=== PATIENT | male | born 1970 | race Caucasian/White ===

== ENCOUNTER 2020-07-18 14:01 | Inpatient (IN) ==
--- OUTSIDE RECORDS SUMMARY | 2020-07-18 14:03 | External Medical Summary | Continuity of Care Document ---
:1970 Author Name Jus Mary Address Unavailable Unavailable , Care Team Providers Name Role Phone Unavailable Unavailable Unavailable PCP, NO Unavailable Unavailable Problems Abnormal findings on screening (796.5) (O28.9) Allergies and Adverse Reactions Allergy history not documented Medications Medications not documented Procedures Procedures not documented Immunizations Immunizations not documented Plan of Treatment Planned Observations Planned Goals not documented Results No Known Results Results not documented
--- NOTE | 2020-07-18 15:33 | XRay Report ---
XR tibia fibula RT 2V CLINICAL HISTORY: R leg/calf pain TRAUMA COMPARISON: None. DISCUSSION: No fractures are visualized. There is a suprapatellar joint effusion. Mild fragmentation of the anterior tibial tuberosity is likely chronic. IMPRESSION: 1. No acute fractures 2. Suprapatellar joint effusion ACT 112: Negative or not required by law. Electronically signed by: Chaz Layton M.D. 07/18/2020 3:32 PM
[2020-07-18] MEDS ORDERED: ACETAMINOPHEN 1000 MG/100 ML IV IV ONE (15:34)
--- NOTE | 2020-07-18 15:38 | Emergency Department Note ---
History of Present Illness General Chief complaint: Leg Injury/Pain Stated complaint: PULLED MUSCLE IN RIGHT LEG Time Seen by Provider: 07/18/20 14:27 History of Present Illness Maximum Pain Intensity: 9 50-year-old male who presents to the emergency department with complaint of the patient does spend a lot of time on his feet as an employee at [employer]. The patient currently is not on any blood thinners. He denies any prior history of right calf injuries. He does report mild discomfort radiating into the ankle and knee region. The patient reports that the calf is starting to get very hard, and rates his discomfort a 9 out of 10 with weightbearing. Home Medications Medication Instructions Recorded Confirmed Type [id number] C-herb no.124 1 tab PO DAILY 07/18/20 07/18/20 History [Airborne (ascorbic acid)] Allergies Allergy/AdvReac Type Severity Reaction Status Date / Time No Known Allergies Allergy Unverified 07/18/20 17:39 Past Med/Surg History Medical History No significant past medical history Surgical History No significant past surgical history Family History Father Hypertension Diabetes Atrial fibrillation Grandfather (Maternal) Lung cancer Grandmother (Maternal) Cancer Grandfather (Paternal) , from [place] in age ~ 60s Myocardial infarction Social History Smoking Status: Unknown if ever smoked Tobacco Type: Cigars Hx Alcohol Use: No Hx Substance Use: No Preferred Language: Turkmen Communication Ability: Effective marital status: Single Current Living Situation: Spouse Current Living Situation Comment: With current occupational status: employed Other Information That Helps Us Care for You: No Feels Safe at Home: Yes Assistive Devices: Cane and Walker Review of Systems 10 system review was performed and was negative except for pertinent positives and negatives as indicated in history of present illness Physical Exam Vital Signs Vital Signs - 24 hr 07/18/20 14:03 07/18/20 16:00 07/18/20 18:25 Temperature 36.4 C L Temperature Source Temporal Artery Scan Pulse Rate 74 Pulse Rate [Finger] 77 68 Respiratory Rate 16 16 16 Respiratory Effort / Characteristics Spontaneous Non-Labored Spontaneous Respiratory Depth Normal Normal Respiratory Pattern Regular Blood Pressure 167/101 H Blood Pressure [Right Arm] 180/97 H 175/125 H Blood Pressure Mean 123 Blood Pressure Mean [Right Arm] 124 141 Blood Pressure Position Sitting Pulse Oximetry 99 98 98 Oxygen Delivery Method Room Air Room Air Sepsis Recent Fever Within 48 Hours No Sepsis New/Unexplained Change in Mental Status No Sepsis Action Taken by Nursing No Action Required CONSTITUTIONAL: Healthy and well nourished. Patient does not appear in any acute distress. HEENT: Normocephalic, atraumatic. No scleral icterus or conjunctival injection/pallor. NECK: Full active range of motion without discomfort. RESPIRATORY: Clear to auscultation bilaterally with no wheezing, crackles, rhonchi or stridor. CARDIOVASCULAR: Regular rate and rhythm with no murmurs, rubs or gallops. GASTROINTESTINAL: Bowel sounds present in all quadrants. MUSCULOSKELETAL: Examination of the right craft shows notable hardness when compared to the contralateral calf. There is no overriding erythema, ecchymosis or warmth to palpation. Patient has significant discomfort with passive forced dorsiflexion of the great toe and ankle. He also has mild tenderness through the popliteal space without any obvious popliteal masses. Pedal pulses are intact. INTEGUMENTARY: No rash or other significant dermatologic conditions noted. HEMATOLOGIC: No ecchymosis or petechiae. PSYCHIATRIC: Positive affect. NEUROLOGIC: No focal neurologic deficits noted. Course Course Patient history and physical exam were performed. Nurses notes were reviewed. Vital signs were reviewed, showing an elevated blood pressure of 167/101. The patient is in moderate discomfort, but initially refused any analgesics. IV access was established, and labs were drawn. While awaiting work-up to be completed, I did contact Elijah Diamond PA-C with [facility]. He reports that he is currently not in-house. He was able to determine that Dr. Martin, orthopedic surgeon process control operator, is in their [place] office. He also agrees of concern with possible compartment syndrome with the patient having pain with dorsiflexion of the great toe and ankle. While awaiting labs to be completed, an x-ray of the right leg did not show any acute findings. After x- rays were completed, the patient did agree to Tylenol. He was administered IV Tylenol because of the severity of his pain. Review of labs shows a moderate leukocytosis with a white count of 14.48, left shift and no bandemia. Sed rate and CRP are elevated. CMP shows normal LFTs with elevated alkaline phosphatase. Lyme screen was negative. Prior to going to ultrasound, the patient did request something stronger for pain, and was administered IV morphine and Zofran. Venous ultrasound of the right lower extremity was negative for DVT. Nonvascular ultrasound of the calf shows a fluid collection extending from the popliteal fossa, and measures 20 x 5 x 2 cm. X-ray of the right tib-fib was also normal. The case was initially discussed with the patient, as well as Dr. Casiano, ED attending physician, who recommended orthopedic consultation. The case was further discussed with Dr. Martin, [facility], who indicated that ultrasound findings were probably more consistent with a ruptured Webster's cyst, however could not rule out the possibility of hematoma, although the patient denies any recent trauma. Dr. Martin recommended hospitalist consultation for observation overnight, and repeat ultrasound in the morning to assess for stability. The case was then further discussed with Dr. Nova, [facility] spitalist. Please see the hospitalist service dictations for further treatment and final disposition. Prior to transfer of care, the patient did report adequate pain relief with IV medications that were provided. It is noted that after transfer of care to the hospitalist service, they did do a noncontrast CT of the leg which was concerning for hematoma. It is noted that coagulation studies are normal. He is also noted that the patient did have a positive COVID-19 test. Administered Medications Ascorbic Acid (Ascorbic Acid 500 Mg Tab) 500 mg PO DAILY MIGUEL Stop: 08/18/20 08:59 Last Admin: 07/19/20 09:06 Dose: 500 mg Documented by: [id number] Discontinued Medications Acetaminophen (Acetaminophen 1000 Mg/100 Ml Iv) 1,000 mg IV ONE ONE Stop: 07/18/20 15:35 Last Admin: 07/18/20 15:57 Dose: 1,000 mg Documented by: [id number] Ketorolac Tromethamine (Ketorolac 30 Mg/Ml Vial) 30 mg IV NOW ONE Stop: 07/18/20 19:13 Last Admin: 07/18/20 19:29 Dose: 30 mg Documented by: [id number] Medical Decision Making Medical Records Attestation: I reviewed the patient's medical records. Home Medications Current Medication List: was personally reviewed by me Laboratory Data Attestation: I reviewed the patient's lab results. Result diagrams: 07/19/20 06:33 07/18/20 17:12 Lab Results 07/18/20 07/18/20 07/18/20 Range/Units 15:45 15:45 15:45 WBC 14.48 H (4.8-10.8) K/uL RBC 5.15 (4.7-6.1) M/uL Hgb 16.3 (14.0-18.0) g/dL Hct 47.2 (42-52) % MCV 91.7 (80-100) fL MCH 31.7 (25-34) pg MCHC 34.5 (32-36) g/dL RDW Std Deviation 42.4 (36.4-46.3) fL RDW Coeff of Arlin 12.7 (11.5-14.5) % Plt Count 329 (130-400) K/uL MPV 11.2 H (7.4-10.4) fL Immature Gran % (Auto) 0.1 % Neut % (Auto) 80.1 % Lymph % (Auto) 11.9 % [place] % (Auto) 6.5 % Eos % (Auto) 1.1 % Baso % (Auto) 0.3 % Neut # (Auto) 11.60 H (1.4-6.5) K/uL Lymph # (Auto) 1.72 (1.2-3.4) K/uL [place] # (Auto) 0.94 H (0.11-0.59) K/uL Eos # (Auto) 0.16 (0-0.5) K/uL Baso # (Auto) 0.04 (0-0.2) K/uL Immature Gran # (Auto) 0.02 (0.00-0.02) K/uL ESR 15 H (0-14) mm/hr PT 10.8 (9.0-12.0) Seconds INR 1.0 (0.9-1.1) APTT 29.1 (21.0-31.0) Seconds PTT Ratio 1.0 Sodium (136-145) mmol/L Potassium (3.5-5.1) mmol/L Chloride (98-107) mmol/L Carbon Dioxide (21-32) mmol/L Anion Gap (3-11) BUN (7-18) mg/dl Creatinine (0.6-1.4) mg/dl Est Cr Clr Drug Dosing ml/min Est GFR ( Amer) Est GFR (Non-Af Amer) BUN/Creatinine Ratio (10-20) Glucose (70-99) mg/dl Calcium (8.5-10.1) mg/dl Total Bilirubin (0.2-1) mg/dl AST (15-37) U/L ALT (12-78) U/L Alkaline Phosphatase (45-117) U/L Total Creatine Kinase (39-308) U/L C-Reactive Protein (0-0.29) mg/dl Total Protein (6.4-8.2) gm/dl Albumin (3.4-5.0) gm/dl Globulin (2.5-4.0) gm/dl Albumin/Globulin Ratio (0.9-2) Lyme Disease IgG Ab Lyme Disease IgM Ab 07/18/20 07/18/20 07/18/20 Range/Units 15:45 15:45 17:12 WBC (4.8-10.8) K/uL RBC (4.7-6.1) M/uL Hgb (14.0-18.0) g/dL Hct (42-52) % MCV (80-100) fL MCH (25-34) pg MCHC (32-36) g/dL RDW Std Deviation (36.4-46.3) fL RDW Coeff of Arlin (11.5-14.5) % Plt Count (130-400) K/uL MPV (7.4-10.4) fL Immature Gran % (Auto) % Neut % (Auto) % Lymph % (Auto) % [place] % (Auto) % Eos % (Auto) % Baso % (Auto) % Neut # (Auto) (1.4-6.5) K/uL Lymph # (Auto) (1.2-3.4) K/uL [place] # (Auto) (0.11-0.59) K/uL Eos # (Auto) (0-0.5) K/uL Baso # (Auto) (0-0.2) K/uL Immature Gran # (Auto) (0.00-0.02) K/uL ESR (0-14) mm/hr PT (9.0-12.0) Seconds INR (0.9-1.1) APTT (21.0-31.0) Seconds PTT Ratio Sodium 136 (136-145) mmol/L Potassium 4.3 (3.5-5.1) mmol/L Chloride 106 (98-107) mmol/L Carbon Dioxide 29 (21-32) mmol/L Anion Gap 1.0 L (3-11) BUN 13 (7-18) mg/dl Creatinine 1.11 (0.6-1.4) mg/dl Est Cr Clr Drug Dosing 98.4 ml/min Est GFR ( Amer) 89.9 Est GFR (Non-Af Amer) 77.6 BUN/Creatinine Ratio 12.0 (10-20) Glucose 88 (70-99) mg/dl Calcium 9.0 (8.5-10.1) mg/dl Total Bilirubin 0.5 (0.2-1) mg/dl AST 11 L (15-37) U/L ALT 26 (12-78) U/L Alkaline Phosphatase 121 H (45-117) U/L Total Creatine Kinase (39-308) U/L C-Reactive Protein 1.21 H (0-0.29) mg/dl Total Protein 9.5 H (6.4-8.2) gm/dl Albumin 4.4 (3.4-5.0) gm/dl Globulin 5.1 H (2.5-4.0) gm/dl Albumin/Globulin Ratio 0.9 (0.9-2) Lyme Disease IgG Ab Cancelled Lyme Disease IgM Ab Cancelled 07/18/20 07/18/20 Range/Units 17:12 17:12 WBC (4.8-10.8) K/uL RBC (4.7-6.1) M/uL Hgb (14.0-18.0) g/dL Hct (42-52) % MCV (80-100) fL MCH (25-34) pg MCHC (32-36) g/dL RDW Std Deviation (36.4-46.3) fL RDW Coeff of Arlin (11.5-14.5) % Plt Count (130-400) K/uL MPV (7.4-10.4) fL Immature Gran % (Auto) % Neut % (Auto) % Lymph % (Auto) % [place] % (Auto) % Eos % (Auto) % Baso % (Auto) % Neut # (Auto) (1.4-6.5) K/uL Lymph # (Auto) (1.2-3.4) K/uL [place] # (Auto) (0.11-0.59) K/uL Eos # (Auto) (0-0.5) K/uL Baso # (Auto) (0-0.2) K/uL Immature Gran # (Auto) (0.00-0.02) K/uL ESR (0-14) mm/hr PT (9.0-12.0) Seconds INR (0.9-1.1) APTT (21.0-31.0) Seconds PTT Ratio Sodium (136-145) mmol/L Potassium (3.5-5.1) mmol/L Chloride (98-107) mmol/L Carbon Dioxide (21-32) mmol/L Anion Gap (3-11) BUN (7-18) mg/dl Creatinine (0.6-1.4) mg/dl Est Cr Clr Drug Dosing ml/min Est GFR ( Amer) Est GFR (Non-Af Amer) BUN/Creatinine Ratio (10-20) Glucose (70-99) mg/dl Calcium (8.5-10.1) mg/dl Total Bilirubin (0.2-1) mg/dl AST (15-37) U/L ALT (12-78) U/L Alkaline Phosphatase (45-117) U/L Total Creatine Kinase 211 (39-308) U/L C-Reactive Protein (0-0.29) mg/dl Total Protein (6.4-8.2) gm/dl Albumin (3.4-5.0) gm/dl Globulin (2.5-4.0) gm/dl Albumin/Globulin Ratio (0.9-2) Lyme Disease IgG Ab Negative Lyme Disease IgM Ab Negative Imaging Data Attestation: I personally reviewed and interpreted this imaging study as follows: My Impression: My interpretation of right tib-fib x-rays does not show any acute fractures or bony lesions. Radiologist does make mention of a suprapatellar joint effusion, as well as mild fragmentation of the anterior tibial tuberosity, likely chronic. Venous ultrasound of the right lower extremity does not show evidence for deep vein thrombosis. Nonvascular ultrasound of the right calf shows a 20 x 5 x 2 cm fluid collection extending from the popliteal fossa into the calf region. Radiologist reports were reviewed. Radiologist's Impression: XR tibia fibula RT 2V CLINICAL HISTORY: R leg/calf pain TRAUMA COMPARISON: None. DISCUSSION: No fractures are visualized. There is a suprapatellar joint effusion. Mild fragmentation of the anterior tibial tuberosity is likely chronic. IMPRESSION: 1. No acute fractures 2. Suprapatellar joint effusion US venous doppler LE RT CLINICAL HISTORY: Right calf pain COMPARISON STUDY: No previous studies for comparison. FINDINGS: Real-time and color flow Doppler imaging were performed. Flow was seen within the femoral, popliteal and calf veins with no intraluminal thrombus demonstrated. The saphenous vein is patent. IMPRESSION: No evidence of right lower extremity DVT. US extremity nonvascular CLINICAL HISTORY: R calf swelling/pain COMPARISON STUDY: No previous studies for comparison. FINDINGS: There is a posterior calf fluid collection extending from the poplite al fossa distally. This measures 20 x 5 x 2 cm. This could represent a hematoma, or other fluid collection. Clinical correlation advocated. IMPRESSION: Elongated fluid collection within the calf extending from the popliteal fossa distally. This measures 20 x 5 x 2 cm. Clinical correlation and follow-up recommended. Blood Pressure Blood Pressure Findings: Elevated blood pressure Blood Pressure Disposition: elevated BP felt to be situational MDM Narrative Patient presents to the emergency department with complaint of left calf pain. Ultrasound findings today does show a fluid collection of unknown etiology. Radiologist thinks that it does emanate from the popliteal space. This would make a ruptured Webster's cyst more likely. The patient reports that he has had issues with his left knee in the past. Obviously a hematoma cannot be ruled out, but felt less likely given that the patient denies any recent trauma. Lyme screen is negative. The patient does have an elevated sed rate and CRP, as well as a leukocytosis of unknown significance. Ankle exam is not suggestive of cellulitis. Compartment syndrome was also considered, given that the patient has pain with passive extension of the great toe and foot. Dr. Martin did not feel that compartment pressure testing was warranted at this point. It is noted that after transfer of care to the hospitalist service, they did do a noncontrast CT of the leg which was concerning for hematoma. It is noted that coagulation studies are normal. It is also noted that the patient did have a positive COVID-19 test. Impression & Plan Hematoma of left lower leg, COVID-19 virus infection Discharge Plan Visit Data Chief Complaint: Leg Injury/Pain Stated Complaint: PULLED MUSCLE IN RIGHT LEG ED Provider: Vamsi Casiano ED Midlevel Provider: Ji Hernandez Discharge Problem: Hematoma of left lower leg, COVID-19 virus infection Patient Disposition: Admitted As Inpatient Discharge Instructions Interventions: ED Discharge Assessment Last Done: 07/18/20 20:44
[2020-07-18 16:10] LABS: Basophils # (auto) 0.04 K/uL (0-0.2); Basophils % (auto) 0.3 %; Eosinophils # (auto) 0.16 K/uL (0-0.5); Eosinophils % (auto) 1.1 %; Hematocrit (blood only) 47.2 % (42-52); Hemoglobin 16.3 g/dL (14.0-18.0); Immature Granulocytes # (auto) 0.02 K/uL (0.00-0.02); Immature Granulocytes % (auto) 0.1 %; Lymphocytes # (auto) 1.72 K/uL (1.2-3.4); Lymphocytes % (auto) 11.9 %; Mean Corpuscular Hemoglobin 31.7 pg (25-34); Mean Corpuscular Hgb Conc 34.5 g/dL (32-36); Mean Corpuscular Volume 91.7 fL (80-100); Mean Platelet Volume 11.2 fL (7.4-10.4); Monocytes # (auto) 0.94 K/uL (0.11-0.59); Monocytes % (auto) 6.5 %; Neutrophils % (auto) 80.1 %; Platelet Count 329 K/uL (130-400); RDW Coefficient of Variation 12.7 % (11.5-14.5); RDW Standard Deviation 42.4 fL (36.4-46.3); Red Blood Count 5.15 M/uL (4.7-6.1); White Blood Count 14.48 K/uL (4.8-10.8)
[2020-07-18 16:23] LABS: Partial Thromboplastin Time 29.1 Seconds (21.0-31.0); Prothrombin Time 10.8 Seconds (9.0-12.0)
--- NOTE | 2020-07-18 16:43 | Ultrasound Report ---
US venous doppler LE RT CLINICAL HISTORY: Right calf pain COMPARISON STUDY: No previous studies for comparison. FINDINGS: Real-time and color flow Doppler imaging were performed. Flow was seen within the femoral, popliteal and calf veins with no intraluminal thrombus demonstrated. The saphenous vein is patent. IMPRESSION: No evidence of right lower extremity DVT. ACT 112: Negative or not required by law. Electronically signed by: Chaz Layton M.D. 07/18/2020 4:41 PM
[2020-07-18 16:47] LABS: Albumin Globulin Ratio 0.9 (0.9-2); Albumin Level 4.4 gm/dl (3.4-5.0); Bilirubin,Total 0.5 mg/dl (0.2-1); C Reactive Protein 1.21 mg/dl (0-0.29); Creatinine Clr Calc Pharmacy 98.4 ml/min; Est GFR (African American) 89.9; Est GFR (Non-African American) 77.6; Globulin 5.1 gm/dl (2.5-4.0); Total Protein 9.5 gm/dl (6.4-8.2)
--- NOTE | 2020-07-18 17:03 | Ultrasound Report ---
US extremity nonvascular CLINICAL HISTORY: R calf swelling/pain COMPARISON STUDY: No previous studies for comparison. FINDINGS: There is a posterior calf fluid collection extending from the popliteal fossa distally. Thi s measures 20 x 5 x 2 cm. This could represent a hematoma, or other fluid collection. Clinical correl ation advocated. IMPRESSION: Elongated fluid collection within the calf extending from the popliteal fossa distally. This measures 20 x 5 x 2 cm. Clinical correlation and follow-up recommended. ACT 112: Negative or not required by law. Electronically signed by: Chaz Layton M.D. 07/18/2020 5:02 PM
[2020-07-18 17:43] LABS: Potassium 4.3 mmol/L (3.5-5.1)
--- NOTE | 2020-07-18 18:07 | History & Physical Report ---
Date of Service July 18, 2020 Assessment & Plan (1) Calf swelling: (2) Right calf pain: Jorge Luis Brito is a healthy 50 y/o M who presents w/ 2 days of right calf pain and swelling concerning for Webster's cyst rupture. Clinically stable. Lower suspicion for acute compartment syndrome at time of inpatient admission. - lower suspicion compartment syndrome at this time given physical examination. per exam, also less likely gouty or septic joint, or cellulitis (lack of erythema, infection, or portal entry) - some leukocytosis 14.48. elevated crp 1.21. likely 2/2 inflammation as opposed to infection - per initial ultrasound, possible involvement of popliteal fossa. combined w/ some tenderness/swelling in that area on exam, considered ruptured Webster's cyst - ordered CT of leg to determine whether fluid collection is blood vs cystic fluid. considered gastroc rupture based on location of symptoms - CT suggestive of hematoma at gastroc. less likely popliteal artery ruptured aneurysm given this finding - less likely malignancy or tumor given age, lack of risk factors, and preliminary imaging - less likely dvt given neg doppler - location of symptoms not consistent w/ achilles pathology - per general medical hx, low risk for claudication - ordered CK (would be elevated in rhabdomyolysis) - consulted orthopedics who will see patient AM 07/19/20 - toradol, tylenol, and oxycodone 5 prn FEN/GI: regular diet dvt ppx: defer in context of hematoma code status: full code dispo: obs status med/surg Present on Admission?: Yes (3) Effusion, right knee: - mild severity. Per attending exam, mildly tender R knee on exam. Some knee pain w/ ROM - patient denies prior knee problems - follow clinically. ortho consulted as per above - pain control as per above Present on Admission?: Yes (4) Hematoma of right lower leg: - per CT of right leg. 10 x 5.7 x 2.5 cm hyperdense mass in the gastrocnemius. The findings are consistent with a hematoma. - elevate and ice - patient stable and exam not suggestive of compartment syndrome (good pulses, no pallor, pain is not exquisite, swelling amount is mild-mod), so no emergent intervention indicated - ortho consulted as per above Present on Admission?: Yes (5) Elevated blood pressure reading without diagnosis of hypertension: - asymptomatic. trend BPs, follow clinically Present on Admission?: Yes (6) COVID-19 virus infection: - 07/18/20 positive covid test - asymptomatic - no indication for steroids/plasma/remdesivir. - covid isolation precautions Present on Admission?: Yes (7) DVT prophylaxis: - chemo ppx deferred in setting of R calf hematoma - mechanical ppx deferred in setting of R calf pain and swelling History of Present Illness Jorge Luis Brito is a healthy 50 y/o M who presents w/ 2 days of right calf pain and swelling, first noticed on 07/16/20. Pain is fairly constant and started off milder w/ progressive worsening, very severe since this AM. It is described as a soreness and that starts behind knee and goes down calf w/ associated calf tightness, but no numbness or tingling. Worsened by weight bearing and flexing knee. Denies trauma, open wounds, or injury, but does stand all day at work. No hx of calf or knee issues. Did not take medicines at home for his symptoms and did not elevate or ice. Pain was constant 8 prior to ED arrival. IV tylenol in ED is helping, w/ current pain level at 5/10. Denies hx of gout, rheumatoid arthritis / autoimmune disorders or prior knee pain/issues. No hx cancers. Denies IV drug use, hx of blood clots, or vascular disease. Primary Care Provider: NO PCP Allergies Allergy/AdvReac Type Severity Reaction Status Date / Time No Known Allergies Allergy Unverified 07/18/20 17:39 Home Medications Medication Instructions Recorded Confirmed Type [id number] C-herb no.124 1 tab PO DAILY 07/18/20 07/18/20 History [Airborne (ascorbic acid)] Past Med/Surg History Medical History No significant past medical history Surgical History No significant past surgical history Family History Father Hypertension Diabetes Atrial fibrillation Grandfather (Maternal) Lung cancer Grandmother (Maternal) Cancer Grandfather (Paternal) , from [place] in age ~ 60s Myocardial infarction Social History Smoking Status: Unknown if ever smoked Tobacco Type: Cigars Hx Alcohol Use: No Hx Substance Use: No Preferred Language: Hungarian Communication Ability: Effective marital status: Single Current Living Situation: Spouse Current Living Situation Comment: With current occupational status: employed Other Information That Helps Us Care for You: No Feels Safe at Home: Yes Assistive Devices: Cane and Walker Review of Systems Review of Systems: Constitutional: Denies fever, chills Cardiovascular: Denies chest pain Respiratory: Denies shortness of breath Gastrointestinal: Denies abdominal pain, nausea, vomiting, constipation, diarrhea Genitourinary: Denies urinary symptoms including dysuria Musculoskeletal: See HPI Neurological: Denies headache, numbness, tingling, focal weakness Physical Exam Physical Exam: General: Grossly A&O. NAD. Cooperative. HEENT: Atraumatic, normocephalic. EOMI Pulm: CTAB. -wheezes, -rales, -rhonchi. No respiratory distress. Cardiac: RRR, -mrg. Radial pulses intact and symmetrical. Abdominal: Nontender, nondistended, soft. Musculoskeletal: R calf warmer and mild-moderately swollen and tender, worse at midcalf, no erythema. some tenderness lateral knee joint. Mild popliteal fossa swelling. Mild R knee effusion and mild tenderness and mild diffuse swelling. strength and sensation of feet and hips intact. 2+ DP pulses. Per attending exam, R knee: motion limited by pain at calf. Negative bilateral straight leg raise. + right calf pain w/ dorsiflexion of R foot. Integumentary: No open wounds or lacerations noted at bilateral lower extremities, knee and below. Results & Data Results & Data ([facility]) Vital Signs (Past 12 Hours) Vital Signs Temp Pulse Pulse Resp BP BP Pulse Ox 07/18/20 16:00 77 16 180/97 H 98 07/18/20 14:03 36.4 C L 74 16 167/101 H 99 Diagnostic Findings 07/18/20 venous doppler RLE: no DVT 07/18/20 tib/fib xr: no acute fracture. suprapatellar joint effusion 07/18/20 RLE US. There is a posterior calf fluid collection extending from the popliteal fossa distally. This measures 20 x 5 x 2 cm. This could represent a hematoma, or other fluid collection. Clinical correlation advocated. IMPRESSION: Elongated fluid collection within the calf extending from the popliteal fossa distally. This measures 20 x 5 x 2 cm. Clinical correlation and follow-up recommended. 07/18/20 CT R leg wo con: No fractures. 10 x 5.7 x 2.5 cm hyperdense mass in the gastrocnemius. The findings are consistent with a hematoma. Code Status & VTE Plan Code Status full code VTE Prophylaxis Plan VTE Prophylaxis will be ordered: Yes Supervising Physician Co-Signing Physician Notes Attending Attestation & Admission Note: Pt seen & examined, chart reviewed, admission care plan d/w resident Dr Oscar Hwang. I agree w/ the werner components of his documentation. 50yo male with no significant PMH who presents with 2 days of worsening right calf pain & swelling. He also has had mild right knee pain. He has had difficulty weight-bearing and walking on the right leg since the pain/swelling started. Denies any fever. Denies any trauma, over-use, or injury. 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 He denies any pre-existing/chronic right knee issues. No personal/family history of DVT/PE. PMH, PSH, allergies, meds, sochx, famhx - reviewed VSS but BPs quite high gen - obese, NAD heart - RRR, s1 s2 lungs - CTA b/l abd - soft NT ND BS+ vasc - popliteal, DP, and pos tib pulses b/l 2+ musculo - right knee - mild joint effusion, lateral joint line tenderness, no warmth/redness; valgus/varus stress causes pain; passive flexion/extension causes pain around patella; popliteal fossa with swelling; right calf with gross swelling but no cords skin - no erythema of RLE labs - crp scantly high mild leukocytosis right tib-fib x-rays, doppler RLE, and u/s of right leg - findings noted COVID PCR Positive A/P: 1. right leg pain and swelling - ruptured Webster's cyst? hematoma? other? plan - CT RLE, pain meds (tylenol, toradol, oxycodone prn); ice prn; elevate; NWB to RLE; spoke with Dr Martin - his team will consult in am 2. right knee effusion - intrinsic knee abnormalities suspected (cartilage vs meniscus vs other internal derangement); pain control; ortho to see 3. elevated BP w/o dx of HTN - follow bps; elevations may simply be pain; no symptoms from elevated BPs. 4. COVID+ status - asymptomatic, but will need to be placed in isolation; no indication for steroids/plasma/remdesivir. Silas Nova MD Resident Activity Tracking Resident Involvement: Resident Care Provided Care Provided: Adult Hospital Medicine
[2020-07-18] MEDS ORDERED: KETOROLAC 30 MG/ML VIAL IV ONE (19:12)
[2020-07-18 19:18] LABS: Lyme Ab IgG w/WB Rflx Negative (Negative); Lyme Ab IgM w/WB Rflx Negative (Negative)
--- NOTE | 2020-07-18 20:12 | CT Scan Report ---
CT tib/fib RT wo con CT DOSE: 403.60 mGy.cm CLINICAL HISTORY: Right calf pain. Abnormal ultrasound. TECHNIQUE: Helical images were acquired in the transverse plane. No intravenous contrast was administ ered. Sagittal coronal reformatted images were acquired. A dose lowering technique was utilized adhe ring to the principles of ALARA. COMPARISON STUDY: Ultrasound study performed the same day FINDINGS: No acute fractures are visualized. There is benign appearing cortical/periosteal thickening involving the posterior aspect of the proximal tibia. There is a 10 x 5.7 x 2.5 cm hyperdense mass within the gastrocnemius. The findings are suggestive of a hematoma. There is edema/fluid tracking along the overlying fascia. IMPRESSION: 1. No fractures identified 2. 10 x 5.7 x 2.5 cm hyperdense mass in the gastrocnemius. The findings are consistent with a hematom a. Clinical follow-up is advocated. ACT 112: Negative or not required by law. Electronically signed by: Chaz Layton M.D. 07/18/2020 8:11 PM
[2020-07-18] MEDS ORDERED: oxyCODONE HCL IR 5 MG TAB (IMMEDIATE RELEASE) PO PRN (21:10)
[2020-07-18] MEDS ORDERED: ACETAMINOPHEN 325 MG TAB PO PRN (21:10)
[2020-07-18] MEDS ORDERED: ONDANSETRON INJ 2 MG/ML 2 ML VIAL IV PRN (21:10)
--- NOTE | 2020-07-18 22:26 | Billing Data ---
Date of Service July 18, 2020 Coding Level of Care Code 28127 OBS Care - Level 2
[2020-07-19 07:01] LABS: Basophils # (auto) 0.04 K/uL (0-0.2); Basophils % (auto) 0.5 %; Eosinophils # (auto) 0.18 K/uL (0-0.5); Hematocrit (blood only) 44.5 % (42-52); Hemoglobin 14.8 g/dL (14.0-18.0); Immature Granulocytes # (auto) 0.01 K/uL (0.00-0.02); Immature Granulocytes % (auto) 0.1 %; Lymphocytes # (auto) 1.53 K/uL (1.2-3.4); Lymphocytes % (auto) 17.3 %; Mean Corpuscular Hemoglobin 30.6 pg (25-34); Mean Corpuscular Hgb Conc 33.3 g/dL (32-36); Mean Corpuscular Volume 92.1 fL (80-100); Mean Platelet Volume 10.6 fL (7.4-10.4); Monocytes # (auto) 0.75 K/uL (0.11-0.59); Monocytes % (auto) 8.5 %; Neutrophils # (auto) 6.34 K/uL (1.4-6.5); Neutrophils % (auto) 71.6 %; Platelet Count 259 K/uL (130-400); RDW Coefficient of Variation 12.9 % (11.5-14.5); RDW Standard Deviation 43.2 fL (36.4-46.3); Red Blood Count 4.83 M/uL (4.7-6.1); White Blood Count 8.85 K/uL (4.8-10.8)
[2020-07-19] MEDS ORDERED: ASCORBIC ACID 500 MG TAB PO SCH (09:00)
[2020-07-19] MEDS: ASCORBIC ACID 500 MG TAB PO SCH (09:06)
--- NOTE | 2020-07-19 10:36 | Orthopedic Consultation ---
Date of Consultation July 19, 2020 Assessment & Plan (1) Hematoma of right lower le x 5 x 2 cm collection/mass noted in the gastrocnemius consistent with hematoma. Patient is feeling much better overall since yesterday. Pain is controlled. Pain management as written. Continue ice and elevation at this time. Nonweightbearing on the right lower extremity with crutches. I will discuss the case with Dr. Martin who will see the patient later this afternoon. Continue with planned observation for now. History of Present Illness Reason for Consultation: Right calf hematoma Attending Physician: Edward Logan History of Present Illness Patient is a 50-year-old white male who was admitted last night after coming into the emergency room complaining of right calf pain. Patient is an employee at [employer] and is on his feet regularly. He denies any history of bruising easily or being on anticoagulation medication. He has not had any spontaneous bleeds in the past. He denies any injury and denies overexerting himself with weight lifting etc. He apparently began having right calf pain that continued t o worsen over time. He felt that his calf was getting hard on palpation and with the worsening pain and inability to ambulate on it he came into the emergency room. He was seen by the staff. Venous ultrasound ruled out DVT. Ultrasound of the calf noted an elongated fluid collection. CT scan was then performed and found to 10 x 5 x 2 fluid collection that was consistent with hematoma. The patient was admitted for observation and we have been asked to see him for his hematoma. Patient was in overtly found to be Covid positive as well. He states he has had no symptoms whatsoever. He is currently lying in bed comfortable and has no new complaints today. He states that his leg is feeling much better today. Allergies Allergy/AdvReac Type Severity Reaction Status Date / Time No Known Allergies Allergy Unverified 07/18/20 17:39 Home Medications Medication Instructions Recorded Confirmed Type Airborne (ascorbic acid) 1 tab PO DAILY 07/18/20 07/18/20 History acetaminophen 650 mg PO Q4H PRN #0 tab 07/21/20 Rx Patient History Medical History No significant past medical history Surgical History No significant past surgical history Family History Father Hypertension Diabetes Atrial fibrillation Grandfather (Maternal) Lung cancer Grandmother (Maternal) Cancer Grandfather (Paternal) , from [place] in age ~ 60s Myocardial infarction Social History Smoking Status: Unknown if ever smoked Tobacco Type: Cigars Hx Alcohol Use: No Hx Substance Use: No Preferred Language: Turkish Communication Ability: Effective marital status: Single Current Living Situation: Spouse Current Living Situation Comment: With current occupational status: employed Feels Safe at Home: Yes Assistive Devices: Walker Review of Systems Review of Systems: All systems reviewed & are unremarkable except as noted in HPI & below Physical Exam Physical Exam: Patient is a well-developed well-nourished white male, alert and oriented x3, no acute distress, pleasant and cooperative. Focusing the exam on the right lower extremity, his calf is soft on palpation. He has some mild tenderness on palpation but states it is not like it was yesterday. Anterior compartments are soft and nontender. He does have noted swelling compared to the left. Swelling is noted is not tense. Forced passive dorsiflexion of the great toe does not elicit any pain. Forced dorsiflexion of the ankle is noted to have some mild discomfort. Patient states he is unable to bear weight on it at this time. Distal pulses are equal bilaterally. Toes are pink and warm and cap refills less than 2 seconds. Sensation is intact. There is no gross motor or sensory loss seen at this time. Results & Data ([facility]) Vital Signs (Past 12 Hours) Vital Signs Temp Pulse Resp BP Pulse Ox 07/19/20 08:08 36.7 C 74 18 154/97 H 96 07/18/20 23:25 36.5 C 63 16 138/92 97
[2020-07-19] MEDS ORDERED: MELATONIN 3 MG TAB PO PRN (20:25)
[2020-07-19] MEDS ORDERED: diphenhydrAMINE Capsule 25 MG CAP PO ONE (20:25)
[2020-07-19] MEDS: KETOROLAC 30 MG/ML VIAL IV PRN (20:54)
--- NOTE | 2020-07-19 21:19 | Hospitalist Progress Note ---
Date of Service July 19, 2020 Assessment & Plan (1) Calf swelling: Jorge Luis Brito is a healthy 50 y/o M who presents w/ 2 days of right calf pain and swelling concerning for Webster's cyst rupture. Clinically stable. Lower suspicion for acute compartment syndrome at time of inpatient admission. - lower suspicion compartment syndrome at this time given physical examination. per exam, also less likely gouty or septic joint, or cellulitis (lack of erythema, infection, or portal entry) - some leukocytosis 14.48. elevated crp 1.21. likely 2/2 inflammation as opposed to infection - per initial ultrasound, possible involvement of popliteal fossa. combined w/ some tenderness/swelling in that area on exam, considered ruptured Webster's cyst - ordered CT of leg to determine whether fluid collection is blood vs cystic fluid. considered gastroc rupture based on location of symptoms - CT suggestive of hematoma at gastroc. less likely popliteal artery ruptured aneurysm given this finding -Patient may benefit from an arthrocenthesis. will discuss with ortho reviewed images. FEN/GI: regular diet dvt ppx: defer in context of hematoma code status: full code dispo: obs status med/surg Present on Admission?: Yes Effusion, right knee: - mild severity. Per attending exam, mildly tender R knee on exam. Some knee pain w/ ROM - patient denies prior knee problems - follow clinically. ortho consulted as per above - pain control as per above Hematoma of right lower leg: - per CT of right leg. 10 x 5.7 x 2.5 cm hyperdense mass in the gastrocnemius. The findings are consistent with a hematoma. - elevate and ice - patient stable and exam not suggestive of compartment syndrome (good pulses, no pallor, pain is not exquisite, swelling amount is mild-mod), so no emergent intervention indicated - ortho consulted as per above =- Elevated blood pressure reading without diagnosis of hypertension: - asymptomatic. trend BPs, follow clinically COVID-19 virus infection: - 07/18/20 positive covid test - asymptomatic - no indication for steroids/plasma/remdesivir. - covid isolation precautions DVT prophylaxis: - chemo ppx deferred in setting of R calf hematoma - mechanical ppx deferred in setting of R calf pain and swelling (2) Right calf pain: (3) Elevated blood pressure reading without diagnosis of hypertension: Admission and Anticipated Discharge Date Admission Date: July 18, 2020 Subjective Patient reports pain in his right knee. Review of Systems Review of Systems: All systems reviewed & are unremarkable except as noted in HPI & below Physical Exam Physical Exam: General: Grossly A&O. NAD. Cooperative. HEENT: Atraumatic, normocephalic. EOMI Pulm: CTAB. -wheezes, -rales, -rhonchi. No respiratory distress. Cardiac: RRR, -mrg. Radial pulses intact and symmetrical. Abdominal: Nontender, nondistended, soft. Musculoskeletal: R knee is swollen in comparison to the Left no erythema. some tenderness lateral knee joint. Mild popliteal fossa swelling. 2+ DP pulses. Per attending exam, R knee: motion limited by pain at calf. Negative bilateral straight leg raise. + right calf pain w/ dorsiflexion of R foot. Integumentary: No open wounds or lacerations noted at bilateral lower extremities, knee and below. Results & Data Results & Data ([facility]) Vital Signs (Past 12 Hours) Vital Signs Temp Pulse Resp BP Pulse Ox 07/19/20 13:17 36.6 C 74 20 146/88 H 98 PG Care Time/CCT Total # of Minutes Spent Total Time Spent with Patient: Total time spent is greater than 50% in coordination of care (as documented) at patient's floor/unit and/or counseling patient: Coding Level of Care Code 00218 Subseq Obs Care Lvl 3 Diagnoses Calf swelling M79.89 Right calf pain M79.661 Elevated blood pressure reading without diagnosis of hypertension R03.0 Time Spent (min) 35
[2020-07-20] MEDS ORDERED: LIDOCAINE HCL 1% 20 ML VIAL ONE (09:30)
[2020-07-20] MEDS: ASCORBIC ACID 500 MG TAB PO SCH (10:16)
--- NOTE | 2020-07-20 14:37 | Orthopedic Progress Note ---
Date of Service July 20, 2020 Assessment & Plan (1) Hematoma of right lower leg: Right lower extremity 10 x 5 x 2 cm collection/mass noted in the gastrocnemius consistent with hematoma. Continued hematoma and pain right knee. Pain management as written. Continue ice and elevation at this time. Nonweightbearing on the right lower extremity with crutches. Aspiration of 40 cc hematoma right knee performed under sterile technique. Order cell count with manual differential, aerobic/anaerobic/Gram stain, crystal analysis, Lyme titer Continue with observation supportive care today. Likely discharge to home nonweightbearing right lower extremity sometime before lunch tomorrow. Spoke with Dr. Logan regarding patient care and treatment plan. Admission and Anticipated Discharge Date Admission Date: July 18, 2020 Subjective Patient resting supine in hospital bed. Alert and oriented x3. Pain is improving right calf however has discomfort with flexion of the right knee. No fevers, chills, nausea or vomiting. Physical Exam Physical Exam: Focused exam right lower extremity demonstrates skin warm/dry/intact. No erythema. No induration. Moderate effusion right knee. Increased discomfort with attempted passive flexion. Tenderness in the popliteal fossa and along the posterior medial gastroc. Enlargement of the right gastroc compared to the left with some increased firmness. No evidence of any features of compartment syndrome. Compartments are soft. Dorsalis pedis and posterior tibial pulses are normal. Cap refill is brisk and equal bilateral lower extremities. No asymmetric coolness is noted lower extremities. Strength is slightly diminished with plantarflexion and dorsiflexion on the right due to discomfort and guarding rather than any loss of function. After sterile prep with Betadine and alcohol approximately 40 cc of bloody fluid was aspirated from the right knee joint under sterile technique with an 18-gauge needle and a 40 cc syringe. Results & Data ([facility]) Vital Signs (Past 12 Hours) Vital Signs Temp Pulse Resp BP Pulse Ox 07/20/20 07:57 36.7 C 70 18 140/81 97
[2020-07-20 15:49] LABS: Appearance Synovial Fluid BLOODY; Color Synovial Fluid RED; Mononuclear WBC Synovial 32.7 %; Polynuclear WBC Synovial 67.3 %; RBC Synovial Fluid (A) 370000 /uL; Source Synovial Fluid KNEE; WBC Synovial Fluid (A) 3420 /ul (0-200)
[2020-07-20] MEDS: KETOROLAC 30 MG/ML VIAL IV PRN ×2 (15:53→20:54)
--- NOTE | 2020-07-20 16:02 | Hospitalist Progress Note ---
Date of Service July 20, 2020 Assessment & Plan (1) Calf swelling: Jorge Luis Brito is a healthy 50 y/o M who presents w/ 2 days of right calf pain and swelling concerning for Webster's cyst rupture. Clinically stable. Lower suspicion for acute compartment syndrome at time of inpatient admission. - lower suspicion compartment syndrome at this time given physical examination. per exam, also less likely gouty or septic joint, or cellulitis (lack of erythema, infection, or portal entry) - some leukocytosis 14.48. elevated crp 1.21. likely 2/2 inflammation as opposed to infection - per initial ultrasound, possible involvement of popliteal fossa. combined w/ some tenderness/swelling in that area on exam, considered ruptured Webster's cyst - ordered CT of leg to determine whether fluid collection is blood vs cystic fluid. considered gastroc rupture based on location of symptoms - CT suggestive of hematoma at gastroc. less likely popliteal artery ruptured aneurysm given this finding -s/p ARTHROCENTHESIS awaiting studies. If neagtive, will discharge in AM. e Effusion, right knee: - mild severity. Per attending exam, mildly tender R knee on exam. Some knee pain w/ ROM - patient denies prior knee problems - follow clinically. ortho consulted as per above - pain control as per above Hematoma of right lower leg: - per CT of right leg. 10 x 5.7 x 2.5 cm hyperdense mass in the gastrocnemius. The findings are consistent with a hematoma. - elevate and ice - patient stable and exam not suggestive of compartment syndrome (good pulses, no pallor, pain is not exquisite, swelling amount is mild-mod), so no emergent intervention indicated - ortho consulted as per above =- Elevated blood pressure reading without diagnosis of hypertension: - asymptomatic. trend BPs, follow clinically COVID-19 virus infection: - 07/18/20 positive covid test - asymptomatic - no indication for steroids/plasma/remdesivir. - covid isolation precautions DVT prophylaxis: - chemo ppx deferred in setting of R calf hematoma - mechanical ppx deferred in setting of R calf pain and swelling (2) Right calf pain: (3) Elevated blood pressure reading without diagnosis of hypertension: Admission and Anticipated Discharge Date Admission Date: July 18, 2020 Subjective 50 yo male reports feeling better after his arthrocenthesis. His pain is better controlled. He has no new symptoms, no fever r chills. he denies any trauma or pop that may have precipitated this "injury" Review of Systems Review of Systems: All systems reviewed & are unremarkable except as noted in HPI & below Physical Exam Physical Exam: General: Grossly A&O. NAD. Cooperative. HEENT: Atraumatic, normocephalic. EOMI Pulm: CTAB. -wheezes, -rales, -rhonchi. No respiratory distress. Cardiac: RRR, -mrg. Radial pulses intact and symmetrical. Abdominal: Nontender, nondistended, soft. Musculoskeletal: R knee is swollen in comparison to the Left no erythema. some tenderness lateral knee joint. Mild popliteal fossa swelling. 2+ DP pulses. Per attending exam, R knee: motion limited by pain at calf. Negative bilateral straight leg raise. + right calf pain w/ dorsiflexion of R foot. Integumentary: No open wounds or lacerations noted at bilateral lower extremities, knee and below. Results & Data Results & Data ([facility]) Vital Signs (Past 12 Hours) Vital Signs Temp Pulse Resp BP Pulse Ox 07/20/20 15:57 36.6 C 66 18 156/92 H 96 07/20/20 07:57 36.7 C 70 18 140/81 97 PG Care Time/CCT Total # of Minutes Spent Total Time Spent with Patient: Total time spent is greater than 50% in coordination of care (as documented) at patient's floor/unit and/or counseling patient: Coding Level of Care Code 41101 Subseq Hosp Care Lvl 2 Diagnoses Calf swelling M79.89 Right calf pain M79.661 Elevated blood pressure reading without diagnosis of hypertension R03.0 Time Spent (min) 25
[2020-07-21] MEDS: ASCORBIC ACID 500 MG TAB PO SCH (07:55)
--- NOTE | 2020-07-21 09:43 | Orthopedic Progress Note ---
Date of Service July 21, 2020 Assessment & Plan (1) Hematoma of right lower leg: Right lower extremity 10 x 5 x 2 cm collection/mass noted in the gastrocnemius consistent with hematoma. Continued hematoma and pain right knee continuing to improve Pain management as written. Continue ice and elevation at this time. Nonweightbearing on the right lower extremity with crutches. Aspiration of 40 cc hematoma right knee performed under sterile technique. Order cell count with manual differential, aerobic/anaerobic/Gram stain, crystal analysis, Lyme titer- no bacteria growth, may discharge to home NWB right lower extremity with crutches F/U this week with Dr. Martin/Ian. Spoke with Dr. Logan regarding patient care and treatment plan. Admission and Anticipated Discharge Date Admission Date: July 20, 2020 Subjective Patient resting comfortably in bed, anxious to go home. He notes pain is better overall especially since having knee aspirated. Physical Exam Physical Exam: right knee effusion- improved with aspiration toes mobile NVI Calf tenderness improving hematoma improving no erythema, warmth Results & Data ([facility]) Vital Signs (Past 12 Hours) Vital Signs Temp Pulse Resp BP Pulse Ox 07/21/20 07:56 36.7 C 64 18 141/93 H 96 07/20/20 22:21 36.6 C 59 L 20 155/83 H 97
--- NOTE | 2020-07-21 13:00 | Discharge Summary ---
Date of Service July 21, 2020 Principal Diagnosis hemarthrosis of right knee Discharge Exam HEENT: Atraumatic, normocephalic. EOMI Pulm: CTAB. -wheezes, -rales, -rhonchi. No respiratory distress. Cardiac: RRR, -mrg. Radial pulses intact and symmetrical. Abdominal: Nontender, nondistended, soft. Musculoskeletal: R knee is swollen in comparison to the Left no erythema. some tenderness lateral knee joint. Mild popliteal fossa swelling. 2+ DP pulses. no tenderness to calf Integumentary: No open wounds or lacerations noted at bilateral lower extremities, knee and below. Discharge Data Allergies Allergy/AdvReac Type Severity Reaction Status Date / Time No Known Allergies Allergy Unverified 07/18/20 17:39 Consultations 07/18/20 17:50 ED Decision to Admit Stat 07/18/20 21:10 Consult Orthopedic Surgery Routine Ordered Studies 07/18/20 14:44 US extremity nonvascular Stat US venous doppler LE RT Stat 07/18/20 19:12 CT tib/fib RT wo con Urgent Hospital Course (1) Calf swelling: Jorge Luis Brito is a healthy 50 y/o M who presents w/ 2 days of right calf pain and swelling concerning for Webster's cyst rupture. Clinically stable. Lower suspicion for acute compartment syndrome at time of inpatient admission. - lower suspicion compartment syndrome at this time given physical examination. per exam, also less likely gouty or septic joint, or cellulitis (lack of e rythema, infection, or portal entry) - some leukocytosis 14.48. elevated crp 1.21. likely 2/2 inflammation as opposed to infection - per initial ultrasound, possible involvement of popliteal fossa. combined w/ some tenderness/swelling in that area on exam, considered ruptured Webster's cyst - ordered CT of leg to determine whether fluid collection is blood vs cystic fluid. considered gastroc rupture based on location of symptoms - CT suggestive of hematoma at gastroc. less likely popliteal artery ruptured aneurysm given this finding -s/p ARTHROCENTHESIS appears to be hemarthrosis, likely ruptured webster's cyst will discharge on crutches with instructions to nonweight bear Right leg e Effusion, right knee: - mild severity. Per attending exam, mildly tender R knee on exam. Some knee pain w/ ROM - patient denies prior knee problems - follow clinically. ortho consulted as per above - pain control as per above Hematoma of right lower leg: - per CT of right leg. 10 x 5.7 x 2.5 cm hyperdense mass in the gastrocnemius. The findings are consistent with a hematoma. - elevate and ice - patient stable and exam not suggestive of compartment syndrome (good pulses, no pallor, pain is not exquisite, swelling amount is mild-mod), so no emergent intervention indicated - ortho consulted as per above =- Elevated blood pressure reading without diagnosis of hypertension: - asymptomatic. trend BPs, follow clinically COVID-19 virus infection: - 07/18/20 positive covid test - asymptomatic - no indication for steroids/plasma/remdesivir. - covid isolation precautions DVT prophylaxis: - chemo ppx deferred in setting of R calf hematoma - mechanical ppx deferred in setting of R calf pain and swelling (2) Right calf pain: (3) Elevated blood pressure reading without diagnosis of hypertension: Total Time Total Time Spent Total Time Spent (In Minutes): 32 Total Time Includes: Examination of the Patient, Discharge Planning and Medication Reconciliation Discharge Plan Discharge Items Patient Disposition: Home - Self-Care Reason For Visit: SEVERE RIGHT LEG PAIN Discharge Diagnosis: Severe right leg pain Activity: Resume your previous activity Non-emergency contact: Primary Care Provider Call non-emergency contact if: you have any medication questions Follow-up/Referrals: PCP,NO [Primary Care Provider] - Diet: Regular Addtl Attending Provider Instructions: In regards to your right knee. Continue ice and elevation at this time when resting. Nonweightbearing on the right lower extremity with crutches. Followup this week with Dr. Martin/Ian. Pending Studies at Discharge: No Stand-Alone Forms: My [facility] Interactions, Smoking Cessation Medications and DC Order Prescriptions: New acetaminophen 325 mg Tablet 650 mg PO Q4H PRN (Reason: pain (scale score 7-10)) Qty: 0 RF: 0 Continued Airborne (ascorbic acid) 250-8.875 mg Tablet,Chewable 1 tab PO DAILY RF: 0 Discharge Orders: Discharge Order (Routine); Ordered 07/21/20 Ordered By: Edward Logan Admission Data Admit Date/Time: 07/20/20 15:59 Attending Provider: Edward Logan Admit Provider: Silas Nova Primary Care Provider: PCP,NO Other Providers: Silas Nova ; Edenilson Martin Other Interventions: Discharge Summary Assessment (RN) Last Done: 07/21/20 09:46 Coding Level of Care Code D/C Day Management >30 mins Diagnoses Calf swelling M79.89 Right calf pain M79.661 Elevated blood pressure reading without diagnosis of hypertension R03.0 Time Spent (min) 32
[2020-07-25 16:17] LABS: Lyme DNA PCR CSF or Synovial Not detected (Not Detected); Lyme DNA Source Synovial Fluid
== END 2020-07-21 11:30 | disposition home or self-care (01) | DRG 553 ==
LOC: 2W 14:01 → ED 14:01 → SUATTDRO 19:20 → 2W 20:44